=== PATIENT | female | born 1945 | race Caucasian/White ===

== ENCOUNTER → 2017-09-20 | Outpatient (CLI) | payer MEDICARE, OTHER ==
[~2017-09-20] MED LIST: COMBIGAN EYE DR10 ML; HYDROCODONE-AP1 EAC6 PO; LEVAQUIN 750 M750 MG PO; LEVOTHYROXIN0.025 MG; OXYBUTYNIN 5 MG5 M2; PROZAC10 MG; XALATAN2.5 M1; ZOFRAN ODT4 MG PO
--- NOTE | 2017-09-28 11:15 | SLEEP ---
[address] [address] SLEEP STUDY REPORT Name: GANESH HULLT Ca Room: [facility]#: [id number] Admission: 09/20/17 Attend Phys: Eden Robertson Discharge: Date of : 41 Report #: [id number] THIS REPORT FOR: //name// CC: Antonieta Jimenez This study has been reviewed in its entirety by a board certified sleep specialist REFERRING PHYSICIAN: Antonieta Jimenez DO. TYPE OF STUDY: Polysomnography. INDICATION: Insomnia, obstructive sleep apnea. METHOD: The following parameters were monitored: Frontal, central and occipital EEG; electro-oculogram; submentalis EMG; nasal and oral airflow; anterior tibialis EMG; body position and electrocardiogram. Additionally, thoracic and abdominal movements were recorded by inductance plethysmography. Oxygen saturation was monitored using pulse oximeter. The tracing was used. Scoring 30-second epochs. Hypopneas were scored per the [place] [employer] definition using the 4% desaturation criteria. SLEEP SUMMARY: Total recording time 444.1 minutes. Total sleep time 320 minutes. Sleep efficiency 56.2%. SLEEP STAGING: Stage N1 9% of total sleep time, stage N2 66.5% of total sleep time, stage N3 0%, stage REM 24.4% of total sleep time. RESPIRATORY SUMMARY: During the study, the patient had a total of 1 obstructive apnea, 1 central apnea and 6 hypopneas, with overall apnea-hypopnea index of 3.1. The average O2 saturation during the study was 95%. The lowest O2 saturation recorded was 87%. The average heart rate during the study was 72.3 beats per minute. No arrhythmias were reported. Total number of limb movement was 85, with limb movement index 20.4 and PLMS index of 16.1. IMPRESSION: The above polysomnography does [place] [address] SLEEP STUDY REPORT Name: PRICILA HULL Room: [facility]#: [id number] Admission: 09/20/17 Attend Phys: Eden Robertson Discharge: Date of : 41 Report #: [id number] sleep apnea; however, increased periodic limb movement of sleep was noted. Clinical correlation is recommended. <ELECTRONICALLY SIGNED> By: Sarika Sommer MD 09/28/17 1115 1214 Maritza Sommer MD /nt
== END ==
LOC: M.SLEEPLAB 08-30 20:00
DX: G47.9 Sleep disorder, unspecified (principal); E03.9 Hypothyroidism, unspecified; R53.82 Chronic fatigue, unspecified

== ENCOUNTER → 2018-05-15 | Outpatient (CLI) | payer MEDICARE, OTHER | LOC: M.RAD 15:09 | DX: Z12.31 Encounter for screening mammogram for malignant neoplasm of breast (principal); N91.2 Amenorrhea, unspecified; M54.40 Lumbago with sciatica, unspecified side; G89.29 Other chronic pain; E03.9 Hypothyroidism, unspecified; Z78.0 Asymptomatic menopausal state ==

== ENCOUNTER → 2020-03-06 | Outpatient (CLI) | payer MEDICARE, OTHER | LOC: M.ULTRA 13:00 | PROVIDERS: ATTEND Family Medicine | DX: E04.9 Nontoxic goiter, unspecified (principal) ==